=== PATIENT | male | born 1980 | race African-American/Black ===

== ENCOUNTER 2023-09-07 08:36 | Day surgery (SDC) | payer MEDICAID ==
[~2023-09-07] VITALS: Ht 152.4 cm; Wt 87.5 kg
[2023-09-07] MEDS ORDERED: MIDAZOLAM HCL 5 MG/5 ML VIAL ONE (12:21)
[2023-09-07] MEDS ORDERED: MEPERIDINE 100 MG INJ. 100 MG/ML VIAL ONE (12:21)
[2023-09-07 13:16] VITALS: O2SAT 100
[2023-09-07 15:55] VITALS: BP_SYST 121; PULSE 90; RESP 18
== END 2023-09-07 14:46 | disposition home or self-care (01) ==
LOC: SDS 08:36 → SMU 08:42 → SDS 14:46
PROVIDERS: ATTEND Internal Medicine Gastroenterology
DX: K58.9 Irritable bowel syndrome, unspecified (principal); D12.5 Benign neoplasm of sigmoid colon; D12.3 Benign neoplasm of transverse colon; K57.30 Diverticulosis of large intestine without perforation or abscess without bleeding; K64.8 Other hemorrhoids; K21.9 Gastro-esophageal reflux disease without esophagitis; E78.5 Hyperlipidemia, unspecified; M19.90 Unspecified osteoarthritis, unspecified site; Z79.899 Other long term (current) drug therapy; Z80.0 Family history of malignant neoplasm of digestive organs
CPT/HCPCS: 45385; 99152; 88305; G0378; J2250; J2175; 45384